=== PATIENT | male | born 1995 | race Hispanic/Latino ===

== ENCOUNTER 2023-02-08 12:21 | Emergency (ER) | payer OTHER ==
[~2023-02-08] VITALS: Ht 177.8 cm; Wt 218.2 kg
[2023-02-08] MEDS ORDERED: ZOSYN 3.375GM+NS 50ML 50 ML IVPB STA (14:23)
[2023-02-08] MEDS ORDERED: 0.9%NACL 1000ML 2,190 ML IV ONE (14:30)
[2023-02-08] MEDS ORDERED: ACETAMINOPHEN 500 MG TABLET PO ONE (14:30)
[2023-02-08 15:10] LABS: BASOPHILS % (AUTO) 0.3 % (0.0-5.0); EOSINOPHILS % (AUTO) 0.2 % (0.0-8.0); LYMPHOCYTES % (AUTO) 17.9 % (21.0-51.0); MEAN CORPUSCULAR HEMOGLOBIN 26.5 pg (27.0-33.0); MEAN CORPUSCULAR HGB CONC 32.5 g/dL (32.0-36.0); MEAN CORPUSCULAR VOLUME 81.6 fL (79-99); MONOCYTES % (AUTO) 10.9 % (3.0-13.0); NEUTROPHILS % (AUTO) 70.4 % (40.0-77.0); PLATELET COUNT (AUTO) 207 K/uL (130-400); RED CELL DISTRIBUTION WIDTH 14.8 % (11.0-15.5); WHITE BLOOD COUNT (AUTO) 6.5 K/uL (4.8-10.8)
[2023-02-08 15:28] LABS: CREATININE 1.1 mg/dL (0.5-1.5); POTASSIUM 3.3 mmol/L (3.5-5.1)
[2023-02-08 15:33] LABS: ALBUMIN 2.9 g/dL (3.5-5.0); TOTAL PROTEIN, SERUM 8.3 g/dL (6.0-8.3)
[2023-02-08 16:31] VITALS: BP 122/58
[2023-02-08] MEDS ORDERED: IBUP-2070 PO (17:10)
[2023-02-08] MEDS ORDERED: CEPH500C2 PO (17:10)
[2023-02-08] MEDS ORDERED: MUPI22OI2 TP (17:10)
[2023-02-08] MEDS ORDERED: SULF1TAB42 PO (17:10)
== END 2023-02-08 17:20 | disposition home or self-care (01) ==
LOC: EDH 12:21
DX: L03.115 Cellulitis of right lower limb (principal)
CPT/HCPCS: 99285; 96365; 93971; 80053; 85025; 87040 ×2; 83605; 36415; J2543

== ENCOUNTER 2023-04-15 19:45 | Emergency (ER) | payer OTHER ==
[~2023-04-15] VITALS: Ht 177.8 cm; Wt 218.2 kg
[~2023-04-15 19:45] MED LIST: CEPH500C2 PO; IBUP-2070 PO; MUPI22OI2 TP; SULF1TAB42 PO
[2023-04-15 20:42] LABS: BASOPHILS % (AUTO) 0.2 % (0.0-5.0); EOSINOPHILS % (AUTO) 1.1 % (0.0-8.0); HEMATOCRIT 42.2 % (42-54); MEAN CORPUSCULAR HEMOGLOBIN 26.6 pg (27.0-33.0); MEAN CORPUSCULAR HGB CONC 31.8 g/dL (32.0-36.0); MEAN CORPUSCULAR VOLUME 83.7 fL (79-99); NEUTROPHILS % (AUTO) 60.3 % (40.0-77.0); PLATELET COUNT (AUTO) 235 K/uL (130-400); RED BLOOD CELL COUNT(AUTO) 5.04 MIL/uL (4.50-6.20); RED CELL DISTRIBUTION WIDTH 14.2 % (11.0-15.5)
[2023-04-15 20:44] LABS: APPEARANCE,URINE CLEAR (CLEAR); BILIRUBIN,URINE NEGATIVE (NEGATIVE); COLOR,URINE YELLOW (YELLOW); GLUCOSE, URINE (UA) NEGATIVE (NEGATIVE); KETONES,URINE NEGATIVE (NEGATIVE); LEUKOCYTE ESTERASE ,URINE NEGATIVE Leu/uL (NEGATIVE); NITRATE,URINE NEGATIVE (NEGATIVE); OCCULT BLOOD,URINE NEGATIVE (NEGATIVE); PROTEIN,URINE 20 mg/dL (NEGATIVE); UROBILINOGEN,URINE 0.2 mg/dL (0.2-1.0)
[2023-04-15 20:48] LABS: MUCUS,URINE RARE LPF (None Seen); SQUAMOUS EPITHELIAL CELL,UR RARE /HPF (0-2)
[2023-04-15 21:03] LABS: CREATININE 1.3 mg/dL (0.5-1.5); POTASSIUM 3.8 mmol/L (3.5-5.1)
[2023-04-15 21:08] LABS: ALBUMIN 3.6 g/dL (3.5-5.0); TOTAL PROTEIN, SERUM 8.2 g/dL (6.0-8.3)
[2023-04-15] MEDS ORDERED: FAMOTIDINE 20MG VIAL IV ONE (23:00)
[2023-04-15] MEDS: MORPHINE 4 MG SYG IVP ONE ×2 (23:03→23:18)
[2023-04-15] MEDS: METOCLOPRAMIDE 10 MG/2 ML VIAL IVP ONE ×2 (23:03→23:18)
[2023-04-15] MEDS ORDERED: FAMOTIDINE 20MG TAB ONE (23:13)
[2023-04-15 23:36] VITALS: BP 128/70
== END 2023-04-16 02:02 | disposition home or self-care (01) ==
LOC: EDH 19:45
DX: R10.30 Lower abdominal pain, unspecified (principal); M54.50 Low back pain, unspecified; E66.09 Other obesity due to excess calories; Z68.44 Body mass index [BMI] 60.0-69.9, adult; Z79.899 Other long term (current) drug therapy
CPT/HCPCS: 99285; 74176; 96374; 80053; 83690; 85025; 81001; 36415; J3490; J2270; J2765

== ENCOUNTER 2023-11-09 21:19 | Emergency (ER) | payer OTHER ==
[~2023-11-09] VITALS: Ht 177.8 cm; Wt 222.3 kg
[2023-11-09 22:48] LABS: APPEARANCE,URINE CLEAR (CLEAR); BILIRUBIN,URINE NEGATIVE (NEGATIVE); COLOR,URINE LIGHT-YELLOW (YELLOW); GLUCOSE, URINE (UA) NEGATIVE (NEGATIVE); KETONES,URINE NEGATIVE (NEGATIVE); LEUKOCYTE ESTERASE ,URINE NEGATIVE Leu/uL (NEGATIVE); NITRATE,URINE NEGATIVE (NEGATIVE); OCCULT BLOOD,URINE NEGATIVE (NEGATIVE); PROTEIN,URINE NEGATIVE (NEGATIVE)
[2023-11-09 22:55] LABS: ADD UA MICROSCOPIC NO
[2023-11-10 00:24] VITALS: BP 172/98; PULSE 87; RESP 17; O2SAT 96
[2023-11-10] MEDS ORDERED: CLOT15C TP (00:29)
== END 2023-11-10 00:45 | disposition home or self-care (01) ==
LOC: EDH 21:19
DX: R30.0 Dysuria (principal); R21 Rash and other nonspecific skin eruption; J45.909 Unspecified asthma, uncomplicated; Z79.899 Other long term (current) drug therapy; Z98.890 Other specified postprocedural states
CPT/HCPCS: 81003

== ENCOUNTER 2024-07-07 11:02 | Observation (INO) | payer SELFPAY ==
[~2024-07-07] VITALS: Ht 177.8 cm; Wt 232.7 kg
[2024-07-07] VITALS (10 sets, daily range): BP systolic 134–141; BP diastolic 65; PULSE 103–140; RESP 22–28; TEMP 98.5–99.9; O2SAT 96–98
[~2024-07-07 11:02] MED LIST changes: +CLOT15C TP
[2024-07-07 11:38] LABS: BASOPHILS # (AUTO) 0.04 K/uL (0.00-0.20); BASOPHILS % (AUTO) 0.3 % (0.0-5.0); EOSINOPHILS # (AUTO) 0.02 K/uL (0.00-0.70); EOSINOPHILS % (AUTO) 0.1 % (0.0-8.0); HEMATOCRIT 41.3 % (42-54); IMMATURE GRANULOCYTE ABSOLUTE 0.06 K/uL (0-1); LYMPHOCYTES # (AUTO) 0.8 K/uL (1.0-4.8); LYMPHOCYTES % (AUTO) 5.4 % (21.0-51.0); MEAN CORPUSCULAR HEMOGLOBIN 27.3 pg (27.0-33.0); MEAN CORPUSCULAR HGB CONC 32.2 g/dL (32.0-36.0); MEAN CORPUSCULAR VOLUME 84.8 fL (79-99); MONOCYTES # (AUTO) 0.9 K/uL (0.1-1.0); NEUTROPHILS # (AUTO) 13.4 K/uL (1.8-7.7); NEUTROPHILS % (AUTO) 87.8 % (40.0-77.0); PLATELET COUNT (AUTO) 226 K/uL (130-400); RED BLOOD CELL COUNT(AUTO) 4.87 MIL/uL (4.50-6.20); RED CELL DISTRIBUTION WIDTH 14.3 % (11.0-15.5); WHITE BLOOD COUNT (AUTO) 15.3 K/uL (4.8-10.8)
[2024-07-07] MEDS: Solu-medROL 125MG VIAL IVP ONE (11:38)
[2024-07-07] MEDS: 0.9%NACL 1000ML 1,000 ML IV ONE (11:38)
[2024-07-07] MEDS: IpraTROPium/alBUTERol SULFATE 3 ML SOLUTION IH ONE (11:43)
[2024-07-07 11:45] LABS: CREATININE 1.2 mg/dL (0.5-1.3)
[2024-07-07 11:47] LABS: INR 1.02 (0.85-1.15)
[2024-07-07 11:49] LABS: PARTIAL THROMBOPLASTIN TIME 28.1 SEC (26.3-35.5)
[2024-07-07 11:52] LABS: SARS-CoV-2, RNA, NAAT NEGATIVE SARS CoV-2 (NEGATIVE)
[2024-07-07 11:54] LABS: ABG BASE EXCESS -2.3 mmol/L (-2.0-3.0); ABG OXYGEN SATURATION 95.1 % (94.0-98.0); ABG PCO2 33 mmHg (35-48); ABG PH 7.429 (7.350-7.450); PO2, ARTERIAL BG 72.2 mmHg (83.0-108.0); VENT MODE, BG RA (ROOM AIR)
[2024-07-07 11:59] LABS: APPEARANCE,URINE CLEAR (CLEAR); BILIRUBIN,URINE NEGATIVE (NEGATIVE); COLOR,URINE LIGHT-YELLOW (YELLOW); GLUCOSE, URINE (UA) NEGATIVE (NEGATIVE); KETONES,URINE NEGATIVE (NEGATIVE); LEUKOCYTE ESTERASE ,URINE NEGATIVE Leu/uL (NEGATIVE); NITRATE,URINE NEGATIVE (NEGATIVE); OCCULT BLOOD,URINE NEGATIVE (NEGATIVE); PROTEIN,URINE NEGATIVE (NEGATIVE); UROBILINOGEN,URINE 0.2 mg/dL (0.2-1.0)
[2024-07-07 12:06] LABS: AMPHET/METH SCREEN,URINE NEGATIVE (NEGATIVE); BARBITURATE SCREEN, URINE NEGATIVE (NEGATIVE); BENZODIAZEPINES SCREEN,URINE NEGATIVE (NEGATIVE); CANNABINOID SCREEN,URINE NEGATIVE (NEGATIVE); COCAINE SCREEN,URINE NEGATIVE (NEGATIVE); OPIATE SCREEN,URINE NEGATIVE (NEGATIVE); PHENCYCLIDINE SCREEN,URINE NEGATIVE (NEGATIVE)
[2024-07-07] MEDS: ceFEPime HCL 1 GM VIAL IVPB SCH (13:20)
[2024-07-07] MEDS ORDERED: DiphenhydrAMINE HCL 25 MG CAPSULE PO PRN (14:00)
[2024-07-07] MEDS ORDERED: PoTASSium chl 10% ELIXIR 20MEQ 20 MEQ/15 ML UDCUP PO PRN (14:00)
[2024-07-07] MEDS ORDERED: NITROGLYCERIN 0.4 MG SL TAB SL PRN (14:00)
[2024-07-07] MEDS ORDERED: 0.9%NACL 1000ML 1,000 ML IV SCH (14:00)
[2024-07-07] MEDS ORDERED: guaiFENesin-DM 200/20MG 10ML PO PRN (14:00)
[2024-07-07] MEDS ORDERED: PoTASSium chloRIDE 20MEQ/100ML 100 ML IV PRN (14:00)
[2024-07-07] MEDS ORDERED: acetaMINOPHEN 325 MG TAB PO PRN (14:00)
[2024-07-07] MEDS ORDERED: PoTASSium chloRIDE 20MEQ ER 20 MEQ ERTAB PO PRN (14:00)
[2024-07-07] MEDS ORDERED: LACTULOSE 20 GM/30 ML UDCUP PO PRN (14:00)
[2024-07-07] MEDS ORDERED: ondanSETRON 4MG INJ IV PRN (14:00)
[2024-07-07] MEDS ORDERED: MAGNESIUM 2GM PREMIX 50ML 50 ML IV PRN (14:00)
[2024-07-07] MEDS ORDERED: DiphenhydrAMINE HCL 50 MG/ML VIAL IV PRN (14:00)
[2024-07-07] MEDS: 0.9%NACL 1000ML 1,000 ML IV SCH (14:09)
[2024-07-07] MEDS: acetaMINOPHEN 325 MG TAB PO PRN (14:10)
[2024-07-07] MEDS: IpraTROPium/alBUTERol SULFATE 3 ML SOLUTION IH SCH (18:42)
[2024-07-07] MEDS: MAG/ALUM/SIMETH 30 ML UDCUP PO PRN (20:00)
[2024-07-08] VITALS (9 sets, daily range): BP systolic 118–133; BP diastolic 69–79; PULSE 94–106; RESP 18–24; TEMP 97.2–98.4; O2SAT 93–96
[2024-07-08 04:15] LABS: BASOPHILS # (AUTO) 0.01 K/uL (0.00-0.20); BASOPHILS % (AUTO) 0.1 % (0.0-5.0); HEMATOCRIT 39.4 % (42-54); IMMATURE GRANULOCYTE ABSOLUTE 0.09 K/uL (0-1); LYMPHOCYTES % (AUTO) 6.7 % (21.0-51.0); MEAN CORPUSCULAR HEMOGLOBIN 27.6 pg (27.0-33.0); MEAN CORPUSCULAR HGB CONC 31.5 g/dL (32.0-36.0); MEAN CORPUSCULAR VOLUME 87.6 fL (79-99); NEUTROPHILS # (AUTO) 12.7 K/uL (1.8-7.7); NEUTROPHILS % (AUTO) 85.6 % (40.0-77.0); PLATELET COUNT (AUTO) 216 K/uL (130-400); RED CELL DISTRIBUTION WIDTH 14.6 % (11.0-15.5); WHITE BLOOD COUNT (AUTO) 14.9 K/uL (4.8-10.8)
[2024-07-08 04:45] LABS: PHOSPHORUS 3.3 mg/dL (2.5-4.9); THYROID STIMULATING HORMONE 0.74 uIU/mL (0.36-3.74)
[2024-07-08] MEDS: ENOXAPARIN SODIUM 40 MG/0.4 ML SYRINGE SQ SCH (08:42)
== END 2024-07-08 15:30 | disposition home or self-care (01) ==
LOC: EDH 11:02 → EDHIP 11:03 → 4AH 15:25
PROVIDERS: ADMIT Internal Medicine; ATTEND Internal Medicine
DX: T67.5XXA Heat exhaustion, unspecified, initial encounter (principal); J45.901 Unspecified asthma with (acute) exacerbation; E86.0 Dehydration; E87.1 Hypo-osmolality and hyponatremia; M62.82 Rhabdomyolysis; D72.829 Elevated white blood cell count, unspecified; R42 Dizziness and giddiness; R51.9 Headache, unspecified; E66.01 Morbid (severe) obesity due to excess calories; Z20.822 Contact with and (suspected) exposure to COVID-19; Z68.45 Body mass index [BMI] 70 or greater, adult; Z79.899 Other long term (current) drug therapy; Z98.890 Other specified postprocedural states; X30.XXXA Exposure to excessive natural heat, initial encounter; Y93.89 Activity, other specified; Y92.89 Other specified places as the place of occurrence of the external cause; Y99.8 Other external cause status
CPT/HCPCS: 96361 ×2; 96365; 96375; 99285; 82550 ×2; 80048 ×2; 82803; 80305; 85025 ×2; 85610; 85730; 87040; 83605 ×3; 81001; 36415 ×2; 87635; 71045; 93005; 36600; 94660; 94664; 84145 ×2; 84443; 83735; 84100; G0378 ×26; J7030; J2919; J0692; 94640; J1650

== ENCOUNTER 2024-12-21 16:12 | Emergency (ER) | payer SELFPAY ==
[~2024-12-21] VITALS: Ht 177.8 cm; Wt 226.8 kg
[2024-12-21 16:58] LABS: BASOPHILS # (AUTO) 0.04 K/uL (0.00-0.20); BASOPHILS % (AUTO) 0.4 % (0.0-5.0); EOSINOPHILS # (AUTO) 0.19 K/uL (0.00-0.70); EOSINOPHILS % (AUTO) 1.9 % (0.0-8.0); HEMATOCRIT 43.4 % (42-54); IMMATURE GRANULOCYTE ABSOLUTE 0.03 K/uL (0-1); LYMPHOCYTES # (AUTO) 1.9 K/uL (1.0-4.8); LYMPHOCYTES % (AUTO) 19.1 % (21.0-51.0); MEAN CORPUSCULAR HEMOGLOBIN 27.1 pg (27.0-33.0); MEAN CORPUSCULAR HGB CONC 32.3 g/dL (32.0-36.0); MEAN CORPUSCULAR VOLUME 84.1 fL (79-99); MONOCYTES # (AUTO) 0.6 K/uL (0.1-1.0); NEUTROPHILS # (AUTO) 7.3 K/uL (1.8-7.7); NEUTROPHILS % (AUTO) 72.3 % (40.0-77.0); PLATELET COUNT (AUTO) 144 K/uL (130-400); RED BLOOD CELL COUNT(AUTO) 5.16 MIL/uL (4.50-6.20); RED CELL DISTRIBUTION WIDTH 14.3 % (11.0-15.5); WHITE BLOOD COUNT (AUTO) 10.1 K/uL (4.8-10.8)
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
--- NOTE | 2024-12-21 17:15 | NUR ---
PENDING GFR RESULTS, IV SITE, & CONSENT FOR CT EXAM.
[2024-12-21] MEDS ORDERED: IOHEXOL 350 MG/ML 100ML INFUS..BTL IV ONE (17:16)
[2024-12-21 17:53] LABS: POTASSIUM 3.8 mmol/L (3.5-5.1)
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
[2024-12-21] MEDS: BACITRACIN 1 EACH PACKET TP ONE (19:24)
[2024-12-21 19:49] VITALS: BP 124/63; PULSE 87; RESP 18; TEMP 98.1; O2SAT 97
== END 2024-12-21 21:11 | disposition home or self-care (01) ==
LOC: EDH 16:12
DX: S20.219A Contusion of unspecified front wall of thorax, initial encounter (principal); E66.01 Morbid (severe) obesity due to excess calories; V89.2XXA Person injured in unspecified motor-vehicle accident, traffic, initial encounter; Y93.89 Activity, other specified; Y92.488 Other paved roadways as the place of occurrence of the external cause; Y99.8 Other external cause status
CPT/HCPCS: 99285; 71260; 80048; 85025; 36415; 74177; Q9967

== ENCOUNTER 2025-08-01 14:51 | Inpatient (IN) | payer SELFPAY ==
[~2025-08-01] VITALS: Ht 154.9 cm; Wt 229.2 kg
[2025-08-01] MEDS: 0.9%NACL 1000ML 1,000 ML IV ONE (15:30)
[2025-08-01 16:09] LABS: IMMATURE GRANULOCYTE ABSOLUTE 0.06 K/uL (0-1); NUCLEATED RED BLOOD CELLS 0.0 % (0.0-0.19); PLATELET COUNT (AUTO) 274 K/uL (130-400); RED BLOOD CELL COUNT(AUTO) 5.07 MIL/uL (4.50-6.20); RED CELL DISTRIBUTION WIDTH 14.5 % (11.0-15.5); WHITE BLOOD COUNT (AUTO) 13.9 K/uL (4.8-10.8)
[2025-08-01 16:22] LABS: CREATININE 1.1 mg/dL (0.5-1.3); GLOMERULAR FILTR. RATE CALC 94.0 mL/min (>90); GLUCOSE,RANDOM 126.0 mg/dL (70-105); SODIUM SERUM 135.0 mmol/L (136-145); UREA NITROGEN, BLOOD 11.0 mg/dL (7-18)
--- NOTE | 2025-08-01 16:30 | HMCIMG ---
CHEST 1VW REASON: fever COMPARISON: Prior study from 07/07/2024 is available. FINDINGS: Single view of the chest was obtained. Lungs are clear. Heart size is normal. There is no pulmonary vascular congestion. Mediastinum and bony thorax appear unremarkable. The study is unchanged from prior study. IMPRESSION: 1. Normal single view chest x-ray.
[2025-08-01 16:31] LABS: ASPARTATE AMINOTRANSFERASE 21.0 U/L (10-37); CREATINE KINASE, TOTAL 165.0 U/L (21-232); TOTAL PROTEIN, SERUM 9.0 g/dL (6.0-8.3)
--- NOTE | 2025-08-01 16:40 | NUR ---
ASSUMED CARE AT THIS TIME
[2025-08-01] MEDS: 0.9%NACL 1000ML 1,000 ML IV SCH ×2 (17:00→19:58)
--- NOTE | 2025-08-01 17:05 | ERN ---
ED Note History of Present Illness Stated Complaint: FEVER Chief Complaint: Fever Time Seen by MD: 15:00 Dictation: 30 year-old male presenting to the emergency department fever generalized body aches over the past day worse in the past few hours patient also reports freque nt urination and a heavy cough. Allergies: Coded Allergies: No Known Allergies (Unverified Allergy, Unknown, 02/08/23) Home Meds No Active Prescriptions or Reported Meds Past Medical History Past Medical History: Asthma, Other Additional Past Medical Hx: MORBID OBESITY Surgical History: None Social History: Negative Review of System Dictation Constitutional: Per HPI Eyes: Negative for injury, pain,redness, and discharge ENT: Negative for injury,pain or swelling Cardiovascular: Negative for chest pain, palpitations, and edema Respiratory: Per HPI Abdomen/GI: Negative for abdominal pain, nausea, vomiting, diarrhea, and constipation Back: Negative for injury and pain : Per H MS/Extremity: Negative for injury and deformity Skin: Negative for rash, and discoloration Neuro: Negative for headache, weakness, numbness, tingling, and seizure Psych: Negative for suicide ideation, homicidal ideation, and hallucinations Initial Vital Sign VS Vital Signs Date Time Temp Pulse Resp B/P (MAP) Pulse Ox O2 Delivery O2 Flow Rate FiO2 08/01/25 14:53 103.8 144 20 157/56 98 Room Air Physical Exam Dictation General: awake, alert, febrile appears uncomfortable Head/Face: Normocephalic, atraumatic Eyes: PERRL, EOMI, vision at baseline ENT: oral cavity clear, TMs clear, no signs of infection Neck: Trachea midline, supple, no nuchal rigidity Cardiovascular: Tachycardic normal S1/S2, No MRGs, no JVD Respiratory: CTAB, no respiratory distress, No rales or wheezes Abdomen: Soft, non-tender, non-distended, normal bowel sounds, no guarding or rebound. Skin: Warm, dry, normal turgor, no rash MS/Extremity: Pulses equal, no cyanosis, neurovascular intact, FROM Neuro: COAx4, GCS 15, strength 5/5, CN 2-12 intact, normal cerebellar exam, normal gait, Psych: Normal behavior, mood, and affect normal Results (Laboratory/Radiology) Laboratory/Radiology Laboratory Tests Test 08/01/25 15:29 White Blood Count 13.9 K/uL (4.8-10.8) H Red Blood Count 5.07 MIL/uL (4.50-6.20) Hemoglobin 13.8 g/dL (14.0-18.0) L Hematocrit 43.5 % (42-54) Mean Corpuscular Volume 85.8 fL (79-99) Mean Corpuscular Hemoglobin 27.2 pg (27.0-33.0) Mean Corpuscular Hemoglobin Concent 31.7 g/dL (32.0-36.0) L Red Cell Distribution Width 14.5 % (11.0-15.5) Platelet Count 274 K/uL (130-400) Mean Platelet Volume 11.7 fL (7.5-10.5) H Immature Granulocyte % (Auto) 0.4 % (0-1) Neutrophils (%) (Auto) 91.0 % (40.0-77.0) H Lymphocytes (%) (Auto) 4.2 % (21.0-51.0) L Monocytes (%) (Auto) 4.2 % (3.0-13.0) Eosinophils (%) (Auto) 0.0 % (0.0-8.0) Basophils (%) (Auto) 0.2 % (0.0-5.0) Neutrophils # (Auto) 12.7 K/uL (1.8-7.7) H Lymphocytes # (Auto) 0.6 K/uL (1.0-4.8) L Monocytes # (Auto) 0.6 K/uL (0.1-1.0) Eosinophils # (Auto) 0.00 K/uL (0.00-0.70) Basophils # (Auto) 0.03 K/uL (0.00-0.20) Absolute Immature Granulocyte (auto 0.06 K/uL (0-1) Nucleated Red Blood Cells 0.0 % (0.0-0.19) White Cell Morphology Comment See comments Sodium Level 135 mmol/L (136-145) L Potassium Level 4.2 mmol/L (3.5-5.1) Chloride Level 96 mmol/L (101-111) L Carbon Dioxide Level 26 mmol/L (21-32) Blood Urea Nitrogen 11 mg/dL (7-18) Creatinine 1.1 mg/dL (0.5-1.3) Glomerular Filtration Rate Calc 94 mL/min (>90) Random Glucose 126 mg/dL (70-105) H Lactic Acid Level 2.8 mmol/L (0.8-2.5) H Total Calcium 9.4 mg/dL (8.5-10.1) Total Bilirubin 1.2 mg/dL (0.2-1.0) H Direct Bilirubin 0.2 mg/dL (0.0-0.3) Aspartate Amino Transf (AST/SGOT) 21 U/L (10-37) Alanine Aminotransferase (ALT/SGPT) 24 U/L (12-78) Alkaline Phosphatase 65 U/L (50-136) Total Creatine Kinase 165 U/L (21-232) # Troponin I High Sensitivity 7 ng/L (4-75) Total Protein 9.0 g/dL (6.0-8.3) H Albumin 3.6 g/dL (3.5-5.0) Labs Reviewed?: Yes EKG Comment: Heart rate 129, sinus tachycardia normal intervals no STEMI ED Course ED Course Orders Procedure Category Date Status Time Influenza Type A & B, LAB 08/01/25 Logged Rapid 15:04 Rapid (Group A Strep) LAB 08/01/25 Logged 15:04 12 Lead Ekg Tracing- EKG 08/01/25 Logged Technical 15:04 Basic Metabolic Panel LAB 08/01/25 Complete 15:04 Blood Cult ROBERT 08/01/25 In Process 15:04 Cbc With Differential LAB 08/01/25 Complete 15:04 Hepatic Function Panel LAB 08/01/25 Complete 15:04 Creatine Kinase, Total LAB 08/01/25 Complete 15:04 Lactic Acid LAB 08/01/25 Complete 15:04 Troponin I High LAB 08/01/25 Complete Sensitivity 15:04 Urinalysis Profile LAB 08/01/25 In Process 15:04 Chest 1vw RAD 08/01/25 Resulted 15:04 Covid19 (Sars Antigen LAB 08/01/25 Logged Rapid) 15:04 Ceftriaxone 2gm Vial PHA 08/01/25 Complete (Rocephin 2gm Inj) 15:04 0.9%Nacl 1000ml (Ns PHA 08/01/25 Complete 1000ml) 15:30 Acetaminophen 500mg PHA 08/01/25 Complete Tab (Tylenol 500mg T 15:04 0.9%Nacl 1000ml (Ns PHA 08/01/25 Logged 1000ml) 17:00 Current Medications Medications (Trade) Dose Ordered Sig/Ryan Route PRN Reason Start Time Stop Time Status Last Admin Dose Admin Acetaminophen (TYLenol 500MG TAB) 1,000 mg ONCE STAT PO 08/01/25 15:04 08/01/25 15:07 DC Ceftriaxone Sodium (Rocephin 2gm Inj) 2 gm ONCE STAT IVPB 08/01/25 15:04 08/01/25 15:07 DC Sodium Chloride 1,000 ml @ 0 mls/hr ONCE ONCE IV 08/01/25 15:30 08/01/25 15:31 DC Sodium Chloride 1,000 ml @ 0 mls/hr ONCE ONCE IV 08/01/25 17:00 08/01/25 17:01 UNV Vital Signs Date Time Temp Pulse Resp B/P (MAP) Pulse Ox O2 Delivery O2 Flow Rate FiO2 08/01/25 14:53 103.8 144 20 157/56 98 Room Air Medical Decision Making MDM MDM: Differential diagnosis: Rationale: Tests considered and ordered secondary to shared decision making include: labs, ECG and radiology Previous outside records reviewed: Old ER visits. Risk of complication and/or morbidity or mortality of patient management: None Medications-Per medication reconciliation Need for hospitalization: Patient does meet criteria for hospitalization. Need for emergency major/minor surgery: No There are no social concerns with this patient. Prescription drug management Prescriptions will include symptomatic care Patient's prior external medical records from other ER visits were reviewed by me as indicated. Prior testing and results from previous visits were reviewed. Prior tests were taken into account with medical decision making and resource utilization, independent historian/historians were used to obtain complete medical history. I independently interpreted the test that were performed, results were reviewed by me and considered findings on radiology if ordered. Medical management and examination interpretation discussions were had by me with other qualified healthcare professionals as indicated for the patient's care. 30-year-old male with SIRS, concern for sepsis, clear x-ray symptoms improved with IV fluids started on broad-spectrum antibiotics admitting for further care and evaluation. Intermediate lactic acidosis with no hypotension Critical Care Note Comment(s) Total critical care time was 33 minutes. Excluding time for procedures. Management of critically ill patient with concern for acute decompensation. Management included interpretation of laboratory values and imaging, hemodynamics, time for consultation with consultants and admitting physician. DX & DISP Disposition: Inpatient Departure Impression: Primary Impression: Leukocytosis Additional Impressions: Sepsis, Lactic acidosis Condition: Stable Scripts No Active Prescriptions or Reported Meds Referrals: SELF,REFERRAL (PCP) ZIA MARION MD Aug 01, 2025 17:05
[2025-08-01 17:06] LABS: APPEARANCE,URINE CLEAR (CLEAR); GLUCOSE, URINE (UA) NEGATIVE (NEGATIVE); LEUKOCYTE ESTERASE ,URINE NEGATIVE Leu/uL (NEGATIVE); NITRATE,URINE NEGATIVE (NEGATIVE); OCCULT BLOOD,URINE NEGATIVE (NEGATIVE)
[2025-08-01 17:10] LABS: ADD UA MICROSCOPIC NO
[2025-08-01] MEDS: BUDESONIDE 0.5 MG/2 ML INH IH ONE (17:36)
[2025-08-01 17:37] VITALS: PULSE 124; RESP 20; O2SAT 96
[2025-08-01 17:44] LABS: ABG BASE EXCESS -1.2 mmol/L (-2.0-3.0); ABG HCO3 21.7 mmol/L (21.0-28.0); ABG OXYGEN SATURATION 95.7 % (94.0-98.0); ABG PCO2 31 mmHg (35-48); ABG PH 7.462 (7.350-7.450); CARBON MONOXIDE 1.5 % (0.5-1.5); PO2, ARTERIAL BG 76.0 mmHg (83.0-108.0); TEMPERATURE, CELSIUS BG 37.0 CELSIUS (35.5-37.0); VENT MODE, BG RA (ROOM AIR)
--- NOTE | 2025-08-01 17:44 | HP ---
[facility] Date of Service: Aug 01, 2025 Time of Service: 17:44 HISTORY OF PRESENT ILLNESS: Date of service: 08/01/2025, patient was seen in ER room 16 This is a 30-year-old male With history of severe morbid obesity with BMI greater than 70, asthma, who presented to the ER for further evaluation of two day history of fever, cough, shortness of breath with congestion. Symptoms have been ongoing for the past two days and patient reports having fever of 103 today. Patient states that about a week ago, he had flu-like symptoms and he took [id number] Robitussin for management. He has been coughing as well and has been having increased urinary frequency. Denies any nausea, vomiting or abdominal pain. Denies having significant wheezing today. He has a history of asthma which is uncontrolled, he uses PRN albuterol inhaler if he starts having flare-up of asthma. Reports that his weight has been stable, he reports having history of morbid obesity, he has a history of snoring and uncontrolled sleep apnea. On presentation to the hospital, patient was noted to be afebrile with T-max of 103.8, heart rate of 144 with sinus tachycardia, blood pressure of 157/56. Labs [place] [address], hemoglobin of 13.8, platelet count of 592511. BMP on presentation showed sodium of 135, potassium 4.9, chloride of 96, BUN of 11, creatinine 1.1, lactic acid of 2.8. Chest x-ray showed hypoventilation with no acute infiltrates. Patient will be admitted for further management of sepsis with lower respiratory tract infection. Patient with severe morbid obesity and will be monitored closely. Patient will receive sepsis bolus of fluid, we will start patient on broad-spectrum antibiotics. We will see how patient progresses in the next 48- 72 hours. REVIEW OF SYSTEMS CONSTITUTIONAL: Fevers, chills, malaise NEUROLOGICAL: Denies headache, amaurosis fugax, motor weakness, sensory deficit, vertigo/spinning sensation, gait abnormalities, or tremors. ENT: No hearing loss, otalgia, otorrhea, rhinitis, rhinorrhea, hoarseness, or sore throat. CARDIOVASCULAR: Denies any exertional angina, dyspnea on exertion, orthopnea, paroxysmal nocturnal dyspnea, palpitations, life-threatening arrhythmias, claudication. PULMONARY: Congestion, cough, shortness of breath SLEEP: Denies morning headaches, daytime somnolence or napping. Denies difficulty falling asleep, staying asleep, waking from sleep. Denies knowledge of snoring. GASTROINTESTINAL: Denies any type of dysphagia to either liquids or solids. Denies nausea, vomiting, pyrosis, early satiety, abdominal pain, diarrhea, constipation, or changes in stool consistency or caliber. Denies coffee-ground emesis, hematemesis, hematochezia, or melanotic stools. GENITOURINARY: Denies frequency, urgency, nocturia, hematuria or incontinence (Storage/Irritative symptoms.) Low urinary stream, straining to void, urinary intermittency or hesitancy, splitting of the voiding stream, terminal dribbling. ENDOCRINOLOGIC: Denies polyuria, polydipsia, polyphagia or heat/cold intolerances. HEMATOLOGIC: Denies thrombophilia/previous clots, or coagulopathy/bleeding disorders. ONCOLOGIC: Denies personal history of malignancy. DERMATOLOGIC: Denies rashes or pruritus. PSYCHIATRIC: Denies any suicidal or homicidal ideation. Denies hallucinations. PAST MEDICAL HISTORY: Morbid obesity, untreated sleep apnea, asthma PAST SURGICAL HISTORY: Patient denies history of major surgeries PAST SOCIAL HISTORY: Denies active smoking or alcohol consumption FAMILY HISTORY: Reports family history of hypertension and type 2 diabetes mellitus Allergies: No known drug allergies Home medications: Denies being on outpatient home medications Coded Allergies: No Known Allergies (Unverified Allergy, Unknown, 02/08/23) PHYSICAL EXAM GENERAL APPEARANCE: The patient is awake, alert, and oriented, patient is sitting up in the bed, patient has severe morbid obesity, appears tachypneic NEUROLOGICAL: Cranial nerves II-XII grossly intact. Motor is 5/5 in bilateral upper and lower extremities proximal to distal. No sensory deficits. HEENT: Face is symmetric. Pupils are equal and reactive. Extraocular movements are intact. NECK: Supple. No JVD. No thyromegaly. No submental, submandibular, pre- /postauricular, occipital or supraclavicular lymphadenopathy. CHEST: Normal chest expansion. No Telemetry. LUNGS: Absence of any rales, rhonchi or any wheezing. CARDIOVASCULAR: Regular. S1 and S2 normal. No appreciable rubs, murmurs or gallops. ABDOMEN: Soft, nontender, and nondistended. There is no rebound, voluntary guarding, or rigidity. : Deferred. No [place]. EXTREMITIES: Non-edematous and not cyanotic. No clubbing. Good capillary refill. SKIN: No skin breakdown. Vital Sign (Last 24 Hours) 08/01/25 14:53 Temp 103.8 B/P (MAP) 157/56 Pulse Ox 98 LABS: Laboratory: Test 08/01/25 16:21 08/01/25 15:29 Range/Units Urine Color LIGHT-YELLOW YELLOW Urine Appearance CLEAR CLEAR Urine pH 8.0 5.0-8.0 Urine Specific [place] 1.018 1.001-1.031 Urine Protein NEGATIVE NEGATIVE mg/dL Urine Glucose (UA) NEGATIVE NEGATIVE mg/dL Urine Ketones NEGATIVE NEGATIVE mg/dL Urine Occult Blood NEGATIVE NEGATIVE Urine Nitrate NEGATIVE NEGATIVE Urine Bilirubin NEGATIVE NEGATIVE mg/dL Urine Urobilinogen 2.0 H 0.2-1.0 mg/dL Urine Leukocyte Esterase NEGATIVE NEGATIVE Garry/uL White Blood Count 13.9 H 4.8-10.8 K/uL Red Blood Count 5.07 4.50-6.20 MIL/uL Hemoglobin 13.8 L 14.0-18.0 g/dL Hematocrit 43.5 42-54 % Mean Corpuscular Volume 85.8 79-99 fL Mean Corpuscular Hemoglobin 27.2 27.0-33.0 pg Mean Corpuscular Hemoglobin Concent 31.7 L 32.0-36.0 g/dL Red Cell Distribution Width 14.5 11.0-15.5 % Platelet Count 274 130-400 K/uL Mean Platelet Volume 11.7 H 7.5-10.5 fL Immature Granulocyte % (Auto) 0.4 0-1 % Neutrophils (%) (Auto) 91.0 H 40.0-77.0 % Lymphocytes (%) (Auto) 4.2 L 21.0-51.0 % Monocytes (%) (Auto) 4.2 3.0-13.0 % Eosinophils (%) (Auto) 0.0 0.0-8.0 % Basophils (%) (Auto) 0.2 0.0-5.0 % Neutrophils # (Auto) 12.7 H 1.8-7.7 K/uL Lymphocytes # (Auto) 0.6 L 1.0-4.8 K/uL Monocytes # (Auto) 0.6 0.1-1.0 K/uL Eosinophils # (Auto) 0.00 0.00-0.70 K/uL Basophils # (Auto) 0.03 0.00-0.20 K/uL Absolute Immature Granulocyte (auto 0.06 0-1 K/uL Nucleated Red Blood Cells 0.0 0.0-0.19 % White Cell Morphology Comment See comments Sodium Level 135 L 136-145 mmol/L Potassium Level 4.2 3.5-5.1 mmol/L Chloride Level 96 L 101-111 mmol/L Carbon Dioxide Level 26 21-32 mmol/L Blood Urea Nitrogen 11 7-18 mg/dL Creatinine 1.1 0.5-1.3 mg/dL Glomerular Filtration Rate Calc 94 >90 mL/min Random Glucose 126 H 70-105 mg/dL Lactic Acid Level 2.8 H 0.8-2.5 mmol/L Total Calcium 9.4 8.5-10.1 mg/dL Total Bilirubin 1.2 H 0.2-1.0 mg/dL Direct Bilirubin 0.2 0.0-0.3 mg/dL Aspartate Amino Transf (AST/SGOT) 21 10-37 U/L Alanine Aminotransferase (ALT/SGPT) 24 12-78 U/L Alkaline Phosphatase 65 50-136 U/L Total Creatine Kinase 165 # 21-232 U/L Troponin I High Sensitivity 7 4-75 ng/L Total Protein 9.0 H 6.0-8.3 g/dL Albumin 3.6 3.5-5.0 g/dL Current Medications Medications (Trade) Dose Ordered Sig/Ryan Route PRN Reason Start Time Stop Time Status Last Admin Dose Admin Acetaminophen (TYLenol 325MG TAB) 650 mg Q6H PRN PO MILD PAIN (1-3) 08/01/25 17:30 08/31/25 17:29 UNV Acetaminophen (TYLenol 500MG TAB) 1,000 mg ONCE STAT PO 08/01/25 15:04 08/01/25 15:07 DC Azithromycin 250 ml @ 250 mls/hr Q24H IVPB 08/01/25 17:30 08/11/25 17:29 UNV Budesonide (Pulmicort 0.5 Mg/2ml) 0.5 mg BIDRESP IH 08/01/25 18:00 08/31/25 17:59 UNV Cefepime HCl (MAXipime 2 gm vial) 2 gm BID IVPB 08/01/25 21:00 08/11/25 20:59 UNV Ceftriaxone Sodium (Rocephin 2gm Inj) 2 gm ONCE STAT IVPB 08/01/25 15:04 08/01/25 15:07 DC Enoxaparin Sodium (Lovenox) 40 mg BID SQ 08/01/25 21:00 08/31/25 20:59 UNV Famotidine (Pepcid 20mg Vial) 20 mg BID IV 08/01/25 21:00 08/31/25 20:59 UNV Hydralazine HCl (APRESOLine 20MG INJ) 10 mg Q6H PRN IV ADMINISTER FOR SBP > 160 08/01/25 18:00 08/31/25 17:59 UNV Ipratropium [place] (AtrovENT UD) 0.5 mg [id number] IH 08/01/25 18:00 08/31/25 17:59 UNV Ondansetron HCl (zoFRAN 4MG INJ) 4 mg Q6H PRN IVP NAUSEA/VOMITING 08/01/25 17:30 08/31/25 17:29 UNV Sodium Chloride 1,000 ml @ 0 mls/hr ONCE IV 08/01/25 17:00 08/02/25 16:59 Sodium Chloride 1,000 ml @ 75 mls/hr [id number] IV 08/01/25 19:00 08/31/25 18:59 UNV DIAGNOSTICS / RADIOLOGY: SERVICE 1504 REASON: fever ORDERING PHYSICIAN: ZIA MARION MD PROCEDURE: CXR1VW - CHEST 1VW CHEST 1VW REASON: fever COMPARISON: Prior study from 07/07/2024 is available. FINDINGS: Single view of the chest was obtained. Lungs are clear. Heart size is normal. There is no pulmonary vascular congestion. Mediastinum and bony thorax appear unremarkable. The study is unchanged from prior study. IMPRESSION: 1. Normal single view chest x-ray. DICTATED BY: MARION OCAMPO MD DATE: 08/01/251626 ELECTRONICALLY SIGNED BY: MARION OCAMPO MD DATE: 08/01/251629 ASSESSMENT: Sepsis with lower respiratory tract infection, POA Lower respiratory tract infection with acute bronchitis, POA Rule out developing community-acquired pneumonia, POA Lactic acidosis, POA Hyponatremia, POA Severe morbid obesity, POA Untreated obstructive sleep apnea, POA Rule out obesity hypoventilation syndrome, POA History of uncontrolled asthma, POA PLAN: Patient will be admitted to cardiac telemetry floor, patient is presenting with sepsis with sinus tachycardia with heart rate greater than 140 We will start patient on sepsis bolus of fluid and stand maintenance IV fluid of NS at 75 mL/hour We will start patient on broad-spectrum antibiotics with IV cefepime/azithromycin We will follow up blood cultures, we will obtain sputum cultures, we will follow up flu, COVID and rapid streptococcal antigen testing We will obtain CT chest without contrast to rule out developing community- acquired pneumonia We will request consultation with pulmonology, patient with underlying poorly treated sleep apnea as well as asthma We will start patient on Pulmicort twice daily, we will start patient on scheduled Atrovent Request consultation with Infectious Disease for antibiotic stewardship and management of sepsis All labs will be repeated in the morning We will keep patient on DVT prophylaxis with Lovenox 40 mg b.i.d. due to severe obesity We will keep patient on GI prophylaxis with Pepcid All labs will be repeated in the morning Date of service: 08/01/2025 Discussed with patient extensively to establish care with PCP, once he improves from sepsis, discussed with patient about dietary and lifestyle modification to lose weight Plan of care was discussed with patient at bedside, Kang Saenz MD Advanced Care Planning: Which of the following were discussed: Hospice care: Yes __ No _X_ Therapeutic options: Yes _X_ No __ Advance directives: Yes _X_ No __ Other discussions: Discussed with who?: Patient Voluntary nature of this service was explained to the patient? Yes _x_ No __ Amount of time spent: 20 minutes KANG SAENZ MD Aug 01, 2025 17:44
[2025-08-01 17:55] LABS: INR 1.09 (0.85-1.15)
[2025-08-01 18:00] VITALS: TEMP 100
[2025-08-01] MEDS: 0.9%NACL 1000ML 2,190 ML IV SCH (18:00)
[2025-08-01] MEDS: BUDESONIDE 0.5 MG/2 ML INH IH SCH (18:00)
[2025-08-01 18:03] LABS: AMPHET/METH SCREEN,URINE NEGATIVE (NEGATIVE); BARBITURATE SCREEN, URINE NEGATIVE (NEGATIVE); CANNABINOID SCREEN,URINE NEGATIVE (NEGATIVE); COCAINE SCREEN,URINE NEGATIVE (NEGATIVE)
[2025-08-01 18:09] LABS: LACTATE DEHYDROGENASE 328.0 U/L (81-234)
[2025-08-01] MEDS: AZITHROMYCIN 500MG+NS 250ML 250 ML IVPB SCH (18:19)
[2025-08-01 18:51] LABS: RAPID GROUP A STREP negative (NEGATIVE)
--- NOTE | 2025-08-01 18:53 | EKG ---
[facility] Test Date: 2025-08-01 Test Time: 15:14:21 Pat Name: RADHA VELASQUEZ Department: [facility]HIP Room: 428 Gender: M [employer] Aide: [id number] : 1995 Requested By: ZIA MARION Order Number: [id number] Reading MD: Jaiden Montgomery Measurements Intervals [place] Rate: 129 P: 61 CA: 152 QRS: -19 QRSD: 98 T: 50 QT: 298 QTc: 437 Interpretive Statements Sinus tachycardia Compared to ECG 07/07/2024 11:23:21 Atrial premature complex(es) no longer present Left-axis deviation no longer present Electronically Signed On 08-02-2025 17:45:45 CDT by Jaiden Montgomery Please click the below link to view image of tracing.
[2025-08-01 18:59] LABS: COVID19 (SARS ANTIGEN RAPID) PRESUMPTIVE NEGATIVE (NEGATIVE)
[2025-08-01 19:01] LABS: INFLUENZA TYPE A Negative For Type A (NEGATIVE); INFLUENZA TYPE B Negative For Type B (NEGATIVE)
[2025-08-01] MEDS ORDERED: guaiFENesin-DM 200/20MG 10ML PO PRN (19:30)
[2025-08-01] MEDS: FAMOTIDINE 20MG VIAL IV SCH (20:03)
[2025-08-01] MEDS: ENOXAPARIN SODIUM 40 MG/0.4 ML SYRINGE SQ SCH (20:03)
--- NOTE | 2025-08-01 20:35 | CONS ---
[facility] CONSULTATION NOTE Date Patient Seen: Aug 01, 2025 Time of Visit: 20:35 Supervising Physician: Dr. Agustin Peace Reason for Consultation: Sepsis, possible pneumonia, untreated RADHA/OHS Primary Care Physician: Admitting team: [facility] Hospitalist team Outpatient Specialists: Inpatient Consults: BIS, critical care team PROBLEM LIST: Acute hypoxemic respiratory failure, POA Respiratory alkalosis, chronic, POA Asthma with acute exacerbation, POA Untreated obstructive sleep apnea, POA Sepsis without septic shock, POA Lactic acidosis, POA Hyponatremia/hypochloremia, POA Hyperglycemia, POA Elevated total bilirubin/ urobilinogenemia, POA Hyperproteinemia, POA Severe morbid obesity, POA HPI: Mr. Parag Ramirez is a 30-year-old male with history of severe morbid obesity, seasonal allergies, uncontrolled asthma, and sleep apnea who presented to the ER for evaluation flu-like symptoms onset a week ago. The patient reported he developed a fever of 103 F, two days ago started with shortness of breath and congestion. He reported he took [id number] Robitussin when the symptoms started one week ago. The patient also reported increased urinary frequency. The patient denied nausea, vomiting, or abdominal pain. He uses PRN albuterol inhaler if he started having flare-up of asthma. Reports that his weight has at baseline a history of snoring and uncontrolled sleep apnea. Initial vital signs: T-max of 103.8, heart rate of 144bpm with sinus tachycardia, blood pressure of 157/56. Swabs: Negative flu/strep/COVID. Initial Labs: [place] [address], hemoglobin of 13.8, platelet count of 507714. BMP sodium of 135, potassium 4.9, chloride of 96, BUN of 11, creatinine 1.1, lactic acid of 2.8. ABGs: PH 7.462, pCO2 31, PO2 76, bicarbonate 21.7, O2 sats 95.7, base excess -1.2. Chest x-ray showed hypoventilation with no acute infiltrates. Pending CT results. The patient received bolus of fluid and was started on broad-spectrum antibiotics in ED. Patient will be admitted by the [facility] hospitalist team for further management of sepsis with lower respiratory tract infection. [facility] pulmonary team was consulted for sepsis, possible pneumonia, untreated RADHA/OHS. I assessed the patient in ED 16. The patient's breathing was tachypneic, RR 24bpm, on room air. The patient reports he has had recent allergy problems. He admits to snoring and apneic episodes. The patient has not seen a green prize packer for this in the past. The patient was placed on 2 L nasal cannula, CPAP was ordered. BIS team we will continue monitoring patient closely. Plan and as sessment is listed below. PAST MEDICAL HX: see above PAST SURGICAL HX: Denied SOCIAL HISTORY: No tobacco, ETOH, or illicit drug use Coded Allergies: No Known Allergies (Unverified Allergy, Unknown, 02/08/23) REVIEW OF SYSTEMS: 12 point ROS reviewed with patient. Pertinent positives mentioned above. Otherwise negative. PHYSICAL EXAM: GENERAL: Alert, awake oriented x 3 HEENT: EOMI, Sclera non icteric, moist mucosa NECK: Supple, no JVD, trachea midline LUNGS: Tachypneic. Diminished breath sounds bilaterally. No wheezes HEART: Regular rate and rhythm. Normal S1 and S2, without murmurs ABD: Morbid obese. Abdomen soft, nontender. Bowel sounds present EXT: No clubbing cyanosis or edema NEURO: Alert and oriented to person,, place, situation. No neuro deficits. Vital Signs (last 8hr) Date Time Temp Pulse Resp B/P (MAP) Pulse Ox O2 Delivery O2 Flow Rate FiO2 08/01/25 18:16 102.0 118 24 130/56 95 Room Air* 0 21 08/01/25 18:00 100.0 08/01/25 17:37 124 20 N/A Room Air 21 08/01/25 17:37 124 20 08/01/25 14:53 103.8 144 20 157/56 98 Room Air LABS: Hematology Labs: Test 08/01/25 15:29 Range/Units White Blood Count 13.9 H 4.8-10.8 K/uL Red Blood Count 5.07 4.50-6.20 MIL/uL Hemoglobin 13.8 L 14.0-18.0 g/dL Hematocrit 43.5 42-54 % Mean Corpuscular Volume 85.8 79-99 fL Mean Corpuscular Hemoglobin 27.2 27.0-33.0 pg Mean Corpuscular Hemoglobin Concent 31.7 L 32.0-36.0 g/dL Red Cell Distribution Width 14.5 11.0-15.5 % Platelet Count 274 130-400 K/uL Mean Platelet Volume 11.7 H 7.5-10.5 fL Immature Granulocyte % (Auto) 0.4 0-1 % Neutrophils (%) (Auto) 91.0 H 40.0-77.0 % Lymphocytes (%) (Auto) 4.2 L 21.0-51.0 % Monocytes (%) (Auto) 4.2 3.0-13.0 % Eosinophils (%) (Auto) 0.0 0.0-8.0 % Basophils (%) (Auto) 0.2 0.0-5.0 % Neutrophils # (Auto) 12.7 H 1.8-7.7 K/uL Lymphocytes # (Auto) 0.6 L 1.0-4.8 K/uL Monocytes # (Auto) 0.6 0.1-1.0 K/uL Eosinophils # (Auto) 0.00 0.00-0.70 K/uL Basophils # (Auto) 0.03 0.00-0.20 K/uL Absolute Immature Granulocyte (auto 0.06 0-1 K/uL Nucleated Red Blood Cells 0.0 0.0-0.19 % White Cell Morphology Comment See comments Erythrocyte Sedimentation Rate 65 H 0-15 MM/HR Chemistry Labs: Test 08/01/25 15:29 Range/Units Sodium Level 135 L 136-145 mmol/L Potassium Level 4.2 3.5-5.1 mmol/L Chloride Level 96 L 101-111 mmol/L Carbon Dioxide Level 26 21-32 mmol/L Blood Urea Nitrogen 11 7-18 mg/dL Creatinine 1.1 0.5-1.3 mg/dL Glomerular Filtration Rate Calc 94 >90 mL/min Random Glucose 126 H 70-105 mg/dL Hemoglobin A1c 5.8 4.0-6.0 % Estimated Average Glucose (eAG) 120 70-126 mg/dL Lactic Acid Level 2.8 H 0.8-2.5 mmol/L Total Calcium 9.4 8.5-10.1 mg/dL Total Bilirubin 1.2 H 0.2-1.0 mg/dL Direct Bilirubin 0.2 0.0-0.3 mg/dL Aspartate Amino Transf (AST/SGOT) 21 10-37 U/L Alanine Aminotransferase (ALT/SGPT) 24 12-78 U/L Alkaline Phosphatase 65 50-136 U/L Lactate Dehydrogenase 328 H 81-234 U/L Total Creatine Kinase 165 # 21-232 U/L Troponin I High Sensitivity 7 4-75 ng/L C-Reactive Protein, Quantitative 54.00 H 0.5-3.0 mg/L Total Protein 9.0 H 6.0-8.3 g/dL Albumin 3.6 3.5-5.0 g/dL Procalcitonin 0.32 0.05-0.5 ng/mL Thyroid Stimulating Hormone (TSH) 0.72 0.36-3.74 uIU/mL Coagulation Labs: Test 08/01/25 15:29 Range/Units Prothrombin Time 11.5 9.6-11.6 SEC Prothromb Time International Ratio 1.09 0.85-1.15 Activated Partial Thromboplast Time 31.3 26.3-35.5 SEC DIAGNOSTICS / RADIOLOGY RESULTS: [ ] PULMONARY PLAN: Monitor respiratory status closely. Start O2 at 2 L nasal cannula now. Titrate oxygen to keep SpO2 equal to greater than 92% and according to ABGs. Atrovent nebulizer treatment treatments scheduled q.6 hours. Albuterol nebulizer treatment q.4 hours PRN SOB. Pulmicort nebulizer treatment b.i.d. RT to provide IS and education on use. Robitussin DM as needed for cough. Continue antibiotic therapy: Zithromax IV and cefepime IV. Pending CT. Pending sputum cultures. Upon discharge follow up with green prize packer for further workup of sleep apnea. DVT and GI prophylaxis. Further orders/plan per hospitalization course and per admitting providers. ATTESTATION BY PHYSICIAN I reviewed the documentation, medical decision making, and treatment plan as noted by the SAMUEL above. I agree with the findings and plan of care. Agustin Peace MD, LUCIA M [facility] HOST Aug 01, 2025 20:35
--- NOTE | 2025-08-01 22:38 | NUR ---
PATIENT NOT TAKING ANY HOME MEDS
[2025-08-02] VITALS (13 sets, daily range): BP systolic 138–158; BP diastolic 86–95; PULSE 88–109; RESP 14–30; TEMP 98.1–99; O2SAT 97–100
[2025-08-02] MEDS: SODIUM CHLORIDE 3% FOR INHALATION 4 ML/AMP VIAL.NEB IH ONE ×3 (00:15→19:34)
--- NOTE | 2025-08-02 00:30 | NUR ---
CPAP IS SITU, PT IN AND OUT OF CPAP HE'S BEEN ASKING TO GO TO THE TOILET
[2025-08-02] MEDS ORDERED: ALBUTEROL 0.083% 2.5 MG/3 ML INH IH PRN (01:30)
[2025-08-02 05:51] LABS: IMMATURE GRANULOCYTE ABSOLUTE 0.04 K/uL (0-1); NUCLEATED RED BLOOD CELLS 0.0 % (0.0-0.19); PLATELET COUNT (AUTO) 229 K/uL (130-400); RED BLOOD CELL COUNT(AUTO) 4.58 MIL/uL (4.50-6.20); RED CELL DISTRIBUTION WIDTH 14.6 % (11.0-15.5); WHITE BLOOD COUNT (AUTO) 6.5 K/uL (4.8-10.8)
[2025-08-02 06:01] LABS: CREATININE 1.0 mg/dL (0.5-1.3); GLOMERULAR FILTR. RATE CALC 105.0 mL/min (>90); GLUCOSE,RANDOM 119.0 mg/dL (70-105); SODIUM SERUM 140.0 mmol/L (136-145); UREA NITROGEN, BLOOD 11.0 mg/dL (7-18)
[2025-08-02] MEDS ORDERED: MAGNESIUM 2GM PREMIX 50ML 50 ML IV PRN (08:30)
[2025-08-02] MEDS ORDERED: DEXTROSE 50%-WATER 50 ML DISP.SYRIN IV PRN (08:30)
[2025-08-02] MEDS ORDERED: PoTASSium chl 10% ELIXIR 20MEQ 20 MEQ/15 ML UDCUP PO PRN (08:30)
[2025-08-02] MEDS ORDERED: GLUCAGON 1MG KIT 1 MG ML IM PRN (08:30)
--- NOTE | 2025-08-02 10:14 | HMCIMG ---
CT CHEST W/O CONTRAST REASON: SEPSIS, FEVER, COUGH SINCE YESTERDAY, R/O DEVELOPING PNEUMONIA COMPARISON: None. TECHNIQUE: Multiple sequential axial images of the chest were obtained from the thoracic inlet through the upper pole of the kidneys without intravenous contrast administration. FINDINGS: Heart size is within upper limits of normal. No mediastinal or axillary lymphadenopathy identified. There is no pleural or pericardial effusion. Lungs are clear. No evidence of airspace consolidation or pulmonary venous congestion. There is no evidence of any pleural effusion. There is no consolidation or pneumothorax. Trachea and main bronchi are unremarkable. No chest wall abnormality identified. IMPRESSION: No acute process seen in CT of the chest without contrast. CT was performed with one or more following dose reduction techniques: automated exposure control, adjustment of the mA and kv according to patient's size, or use of a iterative reconstruction technique.
--- NOTE | 2025-08-02 10:41 | PN ---
[facility] PROGRESS NOTE Date of Service: Aug 02, 2025 Time of Service: 10:41 SUBJECTIVE: [ Nicholas Tuttle the 30-year-old male seen in ER bed 16 on August 02 at approximately 11:00 a.m. in the morning. Patient states he feels much better than when he came in yesterday. 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 Knee denies much cough no chest pain or shortness for breath. ] REVIEW OF SYSTEMS CONSTITUTIONAL: Fevers, chills, malaise NEUROLOGICAL: Denies headache, amaurosis fugax, motor weakness, sensory deficit, vertigo/spinning sensation, gait abnormalities, or tremors. ENT: No hearing loss, otalgia, otorrhea, rhinitis, rhinorrhea, hoarseness, or sore throat. CARDIOVASCULAR: Denies any exertional angina, dyspnea on exertion, orthopnea, paroxysmal nocturnal dyspnea, palpitations, life-threatening arrhythmias, claudication. PULMONARY: Congestion, cough, shortness of breath all improved SLEEP: Denies morning headaches, daytime somnolence or napping. Denies difficulty falling asleep, staying asleep, waking from sleep. Denies knowledge of snoring. GASTROINTESTINAL: Denies any type of dysphagia to either liquids or solids. Denies nausea, vomiting, pyrosis, early satiety, abdominal pain, diarrhea, constipation, or changes in stool consistency or caliber. Denies coffee-ground emesis, hematemesis, hematochezia, or melanotic stools. GENITOURINARY: Denies frequency, urgency, nocturia, hematuria or incontinence (Storage/Irritative symptoms.) Low urinary stream, straining to void, urinary intermittency or hesitancy, splitting of the voiding stream, terminal dribbling. ENDOCRINOLOGIC: Denies polyuria, polydipsia, polyphagia or heat/cold intolerances. HEMATOLOGIC: Denies thrombophilia/previous clots, or coagulopathy/bleeding disorders. ONCOLOGIC: Denies personal history of malignancy. DERMATOLOGIC: Denies rashes or pruritus. PSYCHIATRIC: Denies any suicidal or homicidal ideation. Denies hallucinations. PHYSICAL EXAM GENERAL APPEARANCE: The patient is awake, alert, and oriented, patient is sitting up in the bed, patient has severe morbid obesity, appears tachypneic NEUROLOGICAL: Cranial nerves II-XII grossly intact. Motor is 5/5 in bilateral upper and lower extremities proximal to distal. No sensory deficits. HEENT: Face is symmetric. Pupils are equal and reactive. Extraocular movements are intact. NECK: Supple. No JVD. No thyromegaly. No submental, submandibular, pre- /postauricular, occipital or supraclavicular lymphadenopathy. CHEST: Normal chest expansion. No Telemetry. LUNGS: Bilateral rhonchi with fair air expansion no wheezes or rales. CARDIOVASCULAR: Regular. S1 and S2 normal. No appreciable rubs, murmurs or gallops. ABDOMEN: Soft, nontender, and nondistended. There is no rebound, voluntary guarding, or rigidity. : Deferred. No Bonilla. EXTREMITIES: Non-edematous and not cyanotic. No clubbing. Good capillary refill. SKIN: No skin breakdown. Vital Signs (last 8hr) Date Time Temp Pulse Resp B/P (MAP) Pulse Ox O2 Delivery O2 Flow Rate FiO2 08/02/25 08:00 94 20 130/84 99 Room Air* 0 21 08/02/25 06:31 92 20 08/02/25 06:30 88 30 40 08/02/25 06:23 99.1 85 18 142/60 98 Room Air* 0 21 LABS: Laboratory: Test 08/02/25 05:28 08/01/25 20:54 08/01/25 17:43 08/01/25 17:40 Range/Units White Blood Count 6.5 # 4.8-10.8 K/uL Red Blood Count 4.58 4.50-6.20 MIL/uL Hemoglobin 12.4 L 14.0-18.0 g/dL Hematocrit 39.6 L 42-54 % Mean Corpuscular Volume 86.5 79-99 fL Mean Corpuscular Hemoglobin 27.1 27.0-33.0 pg Mean Corpuscular Hemoglobin Concent 31.3 L 32.0-36.0 g/dL Red Cell Distribution Width 14.6 11.0-15.5 % Platelet Count 229 130-400 K/uL Mean Platelet Volume 11.5 H 7.5-10.5 fL Immature Granulocyte % (Auto) 0.6 0-1 % Neutrophils (%) (Auto) 73.5 40.0-77.0 % Lymphocytes (%) (Auto) 15.4 L 21.0-51.0 % Monocytes (%) (Auto) 10.0 3.0-13.0 % Eosinophils (%) (Auto) 0.0 0.0-8.0 % Basophils (%) (Auto) 0.5 0.0-5.0 % Neutrophils # (Auto) 4.8 1.8-7.7 K/uL Lymphocytes # (Auto) 1.0 1.0-4.8 K/uL Monocytes # (Auto) 0.7 0.1-1.0 K/uL Eosinophils # (Auto) 0.00 0.00-0.70 K/uL Basophils # (Auto) 0.03 0.00-0.20 K/uL Absolute Immature Granulocyte (auto 0.04 0-1 K/uL Nucleated Red Blood Cells 0.0 0.0-0.19 % Sodium Level 140 136-145 mmol/L Potassium Level 4.0 3.5-5.1 mmol/L Chloride Level 101 101-111 mmol/L Carbon Dioxide Level 29 21-32 mmol/L Blood Urea Nitrogen 11 7-18 mg/dL Creatinine 1.0 0.5-1.3 mg/dL Glomerular Filtration Rate Calc 105 >90 mL/min Random Glucose 119 H 70-105 mg/dL Total Calcium 8.6 8.5-10.1 mg/dL Magnesium Level 2.20 1.80-2.40 mg/dL C-Reactive Protein, Quantitative 135.10 H 0.5-3.0 mg/L Lactic Acid Level 1.9 0.8-2.5 mmol/L Blood Gas Specimen Type Arterial Arterial Blood pH 7.462 H 7.350-7.450 Arterial Blood Partial Pressure CO2 31 L 35-48 mmHg Arterial Blood Partial Pressure O2 76.0 L 83.0-108.0 mmHg Arterial Blood HCO3 21.7 21.0-28.0 mmol/L Arterial Blood Oxygen Saturation 95.7 94.0-98.0 % Arterial Blood Base Excess -1.2 -2.0-3.0 mmol/L Hemoglobin (Blood Gas) 12.9 L 13.5-17.5 g/dL Sodium (Blood Gas) 132 L 136-145 MMOL/L Bedside Potassium (Blood Gas) 4.1 3.4-4.5 MMOL/L Bedside Chloride (Blood Gas) 99 98-107 MMOL/L Bedside Glucose (Blood Gas) 130 H 65-95 MG/DL Bedside Ionized Calcium (Blood Gas) 1.13 L 1.15-1.33 MMOL/L Bedside Lactic Acid (Blood Gas) 1.18 H 0.36-0.75 MMOL/L Blood Gas Temperature 37.0 35.5-37.0 CELSIUS Blood Gas Vent Mode RA ROOM AIR FiO2 21.0 % Blood Gas Specimen Comment GUNJAN HOBSON Influenza Type A Antigen Negative For Type A NEGATIVE Influenza Type B Antigen Negative For Type B NEGATIVE SARS-CoV-2 Antigen (Rapid) PRESUMPTIVE NEGATIVE NEGATIVE Group A Streptococcus Rapid negative NEGATIVE Test 08/01/25 16:29 08/01/25 16:21 08/01/25 15:29 Range/Units Urine Opiates Screen NEGATIVE NEGATIVE Urine Barbiturates Screen NEGATIVE NEGATIVE Urine Phencyclidine Screen NEGATIVE NEGATIVE Urine Amphetamines Screen NEGATIVE NEGATIVE Urine Benzodiazepines Screen NEGATIVE NEGATIVE Urine Cocaine Screen NEGATIVE NEGATIVE Urine Marijuana (THC) Screen NEGATIVE NEGATIVE Urine Color LIGHT-YELLOW YELLOW Urine Appearance CLEAR CLEAR Urine pH 8.0 5.0-8.0 Urine Specific [place] 1.018 1.001-1.031 Urine Protein NEGATIVE NEGATIVE mg/dL Urine Glucose (UA) NEGATIVE NEGATIVE mg/dL Urine Ketones NEGATIVE NEGATIVE mg/dL Urine Occult Blood NEGATIVE NEGATIVE Urine Nitrate NEGATIVE NEGATIVE Urine Bilirubin NEGATIVE NEGATIVE mg/dL Urine Urobilinogen 2.0 H 0.2-1.0 mg/dL Urine Leukocyte Esterase NEGATIVE NEGATIVE Garry/uL White Cell Morphology Comment See comments Erythrocyte Sedimentation Rate 65 H 0-15 MM/HR Prothrombin Time 11.5 9.6-11.6 SEC Prothromb Time International Ratio 1.09 0.85-1.15 Activated Partial Thromboplast Time 31.3 26.3-35.5 SEC Hemoglobin A1c 5.8 4.0-6.0 % Estimated Average Glucose (eAG) 120 70-126 mg/dL Total Bilirubin 1.2 H 0.2-1.0 mg/dL Direct Bilirubin 0.2 0.0-0.3 mg/dL Aspartate Amino Transf (AST/SGOT) 21 10-37 U/L Alanine Aminotransferase (ALT/SGPT) 24 12-78 U/L Alkaline Phosphatase 65 50-136 U/L Lactate Dehydrogenase 328 H 81-234 U/L Total Creatine Kinase 165 # 21-232 U/L Troponin I High Sensitivity 7 4-75 ng/L Total Protein 9.0 H 6.0-8.3 g/dL Albumin 3.6 3.5-5.0 g/dL Procalcitonin 0.32 0.05-0.5 ng/mL Thyroid Stimulating Hormone (TSH) 0.72 0.36-3.74 uIU/mL Current Medications Medications (Trade) Dose Ordered Sig/Ryan Route PRN Reason Start Time Stop Time Status Last Admin Dose Admin Acetaminophen (TYLenol 325MG TAB) 650 mg Q6H PRN PO MILD PAIN (1-3) 08/01/25 17:30 08/31/25 17:29 08/02/25 06:17 650 MG Acetaminophen (TYLenol 500MG TAB) 1,000 mg ONCE STAT PO 08/01/25 15:04 08/01/25 15:07 DC 08/01/25 18:00 1,000 MG Albuterol Sulfate (Proventil 0.083% 2.5mg/3ml) 2.5 mg Q4H PRN IH SHORTNESS OF BREATH 08/02/25 01:30 09/01/25 01:29 Azithromycin 250 ml @ 250 mls/hr Q24H IVPB 08/01/25 17:30 08/11/25 17:29 08/01/25 18:19 250 MLS/HR Budesonide (Pulmicort 0.5 Mg/2ml) 0.5 mg BIDRESP IH 08/01/25 18:00 08/31/25 17:59 08/02/25 06:35 0.5 MG Cefepime HCl (MAXipime 2 gm vial) 2 gm BID IVPB 08/01/25 21:00 08/11/25 20:59 08/02/25 09:52 2 GM Ceftriaxone Sodium (Rocephin 2gm Inj) 2 gm ONCE STAT IVPB 08/01/25 15:04 08/01/25 15:07 DC 08/01/25 17:58 2 GM Dextrose (D50w) 50 ml AD PRN IV HYPOGLYCEMIA PROTOCOL 08/02/25 08:30 09/01/25 08:29 Enoxaparin Sodium (Lovenox) 40 mg BID SQ 08/01/25 21:00 08/31/25 20:59 08/02/25 09:52 40 MG Famotidine (Pepcid 20mg Vial) 20 mg BID IV 08/01/25 21:00 08/31/25 20:59 08/02/25 09:50 20 MG Glucagon (Glucagon 1mg Kit) 1 mg AD PRN IM HYPOGLYCEMIA PROTOCOL 08/02/25 08:30 09/01/25 08:29 Guaifenesin/ Dextromethorphan (RobiTUSSin DM 200/20MG 10ML) 10 ml Q6H PRN PO COUGH 08/01/25 19:30 08/31/25 19:29 Hydralazine HCl (APRESOLine 20MG INJ) 10 mg Q6H PRN IV ADMINISTER FOR SBP > 160 08/01/25 18:00 08/31/25 17:59 Ipratropium [place] (AtrovENT UD) 0.5 mg [id number] IH 08/01/25 18:00 08/31/25 17:59 08/02/25 06:35 0.5 MG Magnesium Sulfate 50 ml @ 0 mls/hr PROTOCOL PRN IV MAGNESIUM PROTOCOL 08/02/25 08:30 09/01/25 08:29 Ondansetron HCl (zoFRAN 4MG INJ) 4 mg Q6H PRN IVP NAUSEA/VOMITING 08/01/25 17:30 08/31/25 17:29 Potassium Chloride 100 ml @ 100 mls/hr AD PRN IV POTASSIUM PROTOCOL 08/02/25 08:30 09/01/25 08:29 Potassium Chloride (K-Dur/Klor-Con 20meq) 20 meq AD PRN PO POTASSIUM PROTOCOL 08/02/25 08:30 09/01/25 08:29 Potassium Chloride (KCl 10% Elixir 20meq/15ml) 20 meq AD PRN PO POTASSIUM PROTOCOL 08/02/25 08:30 09/01/25 08:29 Sodium Chloride 1,000 ml @ 0 mls/hr ONCE IV 08/01/25 17:00 08/02/25 16:59 Sodium Chloride 1,000 ml @ 75 mls/hr [id number] IV 08/01/25 19:00 08/31/25 18:59 08/02/25 09:52 75 MLS/HR Sodium Chloride 2,190 ml @ 730 mls/hr ONCE IV 08/01/25 17:30 08/02/25 17:29 08/01/25 18:00 730 MLS/HR DIAGNOSTICS / RADIOLOGY: [ ] ASSESSMENT: Sepsis with lower respiratory tract infection, POA Lower respiratory tract infection with acute bronchitis, POA Rule out developing community-acquired pneumonia, POA Lactic acidosis, POA Hyponatremia, POA Severe morbid obesity, POA Untreated obstructive sleep apnea, POA Rule out obesity hypoventilation syndrome, POA History of uncontrolled asthma, POA PLAN: Patient will be admitted to cardiac telemetry floor, patient is presenting with sepsis with sinus tachycardia with heart rate greater than 140 Patient's heart rate has normalized with fluid resuscitation and IV antibiotics as well as breathing treatments. Patient may be downgraded to med surge floor. Advised the patient that I would prefer that he stay another day in order to receive more breathing treatments and IV antibiotics. Patient is initial screening for COVID as well as strep and flu were negative. CT chest pending We will request consultation with pulmonology, patient with underlying poorly treated sleep apnea as well as asthma We will start patient on Pulmicort twice daily, we will start patient on scheduled Atrovent continue Request consultation with Infectious Disease for antibiotic stewardship and management of sepsis We will keep patient on DVT prophylaxis with Lovenox 40 mg b.i.d. due to severe obesity We will keep patient on GI prophylaxis with Pepcid All labs will be repeated in the morning Date of service: 08/01/2025 Discussed with patient my recommendation to stay in the hospital another day and continue with treatment outlined above. Plan of care was discussed with patient at bedside, ZHENG IPKE MD Aug 02, 2025 10:41
--- NOTE | 2025-08-02 11:07 | PN ---
[facility] PROGRESS NOTE Date Patient Seen: Aug 02, 2025 Time of Visit: 11:07 Supervising Physician: Dr. Peace Primary Care Physician: Admitting team: [facility] Hospitalist team Outpatient Specialists: Inpatient Consults: [facility], critical care team PROBLEM LIST: Acute hypoxemic respiratory failure, POA Respiratory alkalosis, chronic, POA Asthma with acute exacerbation, POA Untreated obstructive sleep apnea, POA Sepsis without septic shock, POA Lactic acidosis, POA Hyponatremia/hypochloremia, POA Hyperglycemia, POA Elevated total bilirubin/ urobilinogenemia, POA Hyperproteinemia, POA Severe morbid obesity, POA Recommendations: Monitor respiratory status closely. RT 6 minute ambulation Weight loss, GLP1 RADHA suspected upon discharge, follow up with [facility], Dr. Pravin Plaza this you want to go there DVT and GI prophylaxis. Further orders/plan per hospitalization course and per admitting providers. INTERVAL HISTORY: Patient was assessed and seen while resting in bed head of bed elevated, emergency room bay#16. Awake alert and oriented. Reviewed and discussed with patient laboratory results, vital signs, diagnostic tests results medications patient denies shortness or breath, chest pain, fever, chills, nauseousness and diarrhea currently. Discussed with patient importance of weight loss and a heart healthy diet with failure to do so results in serious health issues. BiPAP at q.h.s. A.m. labs ordered REVIEW OF SYSTEMS: 12 point ROS reviewed with patient. Pertinent positives mentioned above. Otherwise negative. PHYSICAL EXAM: GENERAL: Alert, awake oriented x 3 HEENT: EOMI, Sclera non icteric, moist mucosa NECK: Supple, no JVD, trachea midline LUNGS: Tachypneic. Diminished breath sounds bilaterally. No wheezes HEART: Regular rate and rhythm. Normal S1 and S2, without murmurs ABD: Morbid obese. Abdomen soft, nontender. Bowel sounds present EXT: No clubbing cyanosis or edema NEURO: Alert and oriented to person,, place, situation. No neuro deficits. Vital Signs (last 8hr) Date Time Temp Pulse Resp B/P (MAP) Pulse Ox O2 Delivery O2 Flow Rate FiO2 08/02/25 08:00 94 20 130/84 99 Room Air* 0 21 08/02/25 06:31 92 20 08/02/25 06:30 88 30 40 08/02/25 06:23 99.1 85 18 142/60 98 Room Air* 0 21 LABS: Hematology Labs: Test 08/02/25 05:28 08/01/25 15:29 Range/Units White Blood Count 6.5 # 4.8-10.8 K/uL Red Blood Count 4.58 4.50-6.20 MIL/uL Hemoglobin 12.4 L 14.0-18.0 g/dL Hematocrit 39.6 L 42-54 % Mean Corpuscular Volume 86.5 79-99 fL Mean Corpuscular Hemoglobin 27.1 27.0-33.0 pg Mean Corpuscular Hemoglobin Concent 31.3 L 32.0-36.0 g/dL Red Cell Distribution Width 14.6 11.0-15.5 % Platelet Count 229 130-400 K/uL Mean Platelet Volume 11.5 H 7.5-10.5 fL Immature Granulocyte % (Auto) 0.6 0-1 % Neutrophils (%) (Auto) 73.5 40.0-77.0 % Lymphocytes (%) (Auto) 15.4 L 21.0-51.0 % Monocytes (%) (Auto) 10.0 3.0-13.0 % Eosinophils (%) (Auto) 0.0 0.0-8.0 % Basophils (%) (Auto) 0.5 0.0-5.0 % Neutrophils # (Auto) 4.8 1.8-7.7 K/uL Lymphocytes # (Auto) 1.0 1.0-4.8 K/uL Monocytes # (Auto) 0.7 0.1-1.0 K/uL Eosinophils # (Auto) 0.00 0.00-0.70 K/uL Basophils # (Auto) 0.03 0.00-0.20 K/uL Absolute Immature Granulocyte (auto 0.04 0-1 K/uL Nucleated Red Blood Cells 0.0 0.0-0.19 % White Cell Morphology Comment See comments Erythrocyte Sedimentation Rate 65 H 0-15 MM/HR Chemistry Labs: Test 08/02/25 05:28 08/01/25 20:54 08/01/25 15:29 Range/Units Sodium Level 140 136-145 mmol/L Potassium Level 4.0 3.5-5.1 mmol/L Chloride Level 101 101-111 mmol/L Carbon Dioxide Level 29 21-32 mmol/L Blood Urea Nitrogen 11 7-18 mg/dL Creatinine 1.0 0.5-1.3 mg/dL Glomerular Filtration Rate Calc 105 >90 mL/min Random Glucose 119 H 70-105 mg/dL Total Calcium 8.6 8.5-10.1 mg/dL Magnesium Level 2.20 1.80-2.40 mg/dL C-Reactive Protein, Quantitative 135.10 H 0.5-3.0 mg/L Lactic Acid Level 1.9 0.8-2.5 mmol/L Hemoglobin A1c 5.8 4.0-6.0 % Estimated Average Glucose (eAG) 120 70-126 mg/dL Total Bilirubin 1.2 H 0.2-1.0 mg/dL Direct Bilirubin 0.2 0.0-0.3 mg/dL Aspartate Amino Transf (AST/SGOT) 21 10-37 U/L Alanine Aminotransferase (ALT/SGPT) 24 12-78 U/L Alkaline Phosphatase 65 50-136 U/L Lactate Dehydrogenase 328 H 81-234 U/L Total Creatine Kinase 165 # 21-232 U/L Troponin I High Sensitivity 7 4-75 ng/L Total Protein 9.0 H 6.0-8.3 g/dL Albumin 3.6 3.5-5.0 g/dL Procalcitonin 0.32 0.05-0.5 ng/mL Thyroid Stimulating Hormone (TSH) 0.72 0.36-3.74 uIU/mL Coagulation Labs: Test 08/01/25 15:29 Range/Units Prothrombin Time 11.5 9.6-11.6 SEC Prothromb Time International Ratio 1.09 0.85-1.15 Activated Partial Thromboplast Time 31.3 26.3-35.5 SEC DIAGNOSTICS / RADIOLOGY RESULTS: [ ] Recommendations: Monitor respiratory status closely. RT 6 minute ambulation Weight loss, GLP1 RADHA suspected upon discharge, follow up with [facility], Dr. Pravin Plaza this you want to go there DVT and GI prophylaxis. Further orders/plan per hospitalization course and per admitting providers. DEWAYNE ANGUIANO AGACN Aug 02, 2025 11:07
--- NOTE | 2025-08-02 13:33 | NUR ---
Patient arrived on med surg via hospital bed. No pain or distress noted on arrival. Will continue to monitor.
[2025-08-02] MEDS ORDERED: AUD NEB (14:12)
[2025-08-02] MEDS ORDERED: ALBUHFA IH (14:12)
[2025-08-02] MEDS ORDERED: LORA10CA PO (14:12)
--- NOTE | 2025-08-02 16:44 | NUR ---
INITIAL/DCP HOME Met w pt this afternoon to discuss dcp. Prior to admission pt was living w his dad. 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 Pt states he is independent w ambulation and ADLs. He owns a nebulizer. [facility] preferred [facility]. Pt does not have health insurance. Community resource guide provided. Discharge goal is to return home. Addendum: 08/02/25 at 1646 by CELIA GARNETT Amended: Links added.
[2025-08-03] VITALS (10 sets, daily range): BP systolic 126–155; BP diastolic 81–88; PULSE 80–100; RESP 16–24; TEMP 98–98.5; O2SAT 96–99
[2025-08-03 04:47] LABS: IMMATURE GRANULOCYTE ABSOLUTE 0.02 K/uL (0-1); NUCLEATED RED BLOOD CELLS 0.0 % (0.0-0.19); PLATELET COUNT (AUTO) 204 K/uL (130-400); RED BLOOD CELL COUNT(AUTO) 4.14 MIL/uL (4.50-6.20); RED CELL DISTRIBUTION WIDTH 14.6 % (11.0-15.5); WHITE BLOOD COUNT (AUTO) 5.2 K/uL (4.8-10.8)
[2025-08-03 05:19] LABS: CREATININE 1.1 mg/dL (0.5-1.3); GLOMERULAR FILTR. RATE CALC 94.0 mL/min (>90); GLUCOSE,RANDOM 102.0 mg/dL (70-105); SODIUM SERUM 138.0 mmol/L (136-145); UREA NITROGEN, BLOOD 13.0 mg/dL (7-18)
[2025-08-03] MEDS: PoTASSium chloRIDE 20MEQ ER 20 MEQ ERTAB PO PRN (06:06)
[2025-08-03] MEDS ORDERED: ALBUTEROL SULFATE NEB SCH (14:30)
[2025-08-03] MEDS ORDERED: NON-FORMULARY MEDICATION 1 EACH (Albuterol Sulfate (Ventolin Hfa/Proventil Hfa/Proair Hfa) IH PRN (14:30)
--- NOTE | 2025-08-03 14:44 | DS ---
Discharge Summary Hospital Course Summary: 29-year-old male morbidly obese who comes in with two day history of cough and shortness for breath diagnosed with bronchitis. CT scan does not show any pneumonia. Patient received IV antibiotics and nebulizer treatments and did well. By hospital day 3. He was ready for discharge without any chest pain or shortness for breath and felt normal. Physical exam showed a morbidly obese young male in no respiratory distress HEENT: PERRLA, EOMI Lungs were clear to auscultation bilaterally CVS S1-S2 regular no murmur heart sounds distant Abdomen: Soft morbidly obese with a huge pannus bowel sounds present exam limited due to body habitus Extremities: Without clubbing cyanosis or edema Neuro: Moving all four extremities Wafer Machine Operator(s): Pulmonary benchmark Procedure(s): None Assessment/Plan: ASSESSMENT: Sepsis with lower respiratory tract infection, POA Lower respiratory tract infection with acute bronchitis, POA Rule out developing community-acquired pneumonia, POA Lactic acidosis, POA Hyponatremia, POA Severe morbid obesity, POA Untreated obstructive sleep apnea, POA Rule out obesity hypoventilation syndrome, POA History of uncontrolled asthma, POA PLAN: Patient will be admitted to cardiac telemetry floor, patient is presenting with sepsis with sinus tachycardia with heart rate greater than 140 Patient's heart rate has normalized with fluid resuscitation and IV antibiotics as well as breathing treatments. Patient may be downgraded to med surge floor. Advised the patient that I would prefer that he stay another day in order to receive more breathing treatments and IV antibiotics. Patient is initial screening for COVID as well as strep and flu were negative. CT chest pending We will request consultation with pulmonology, patient with underlying poorly treated sleep apnea as well as asthma We will start patient on Pulmicort twice daily, we will start patient on scheduled Atrovent continue Request consultation with Infectious Disease for antibiotic stewardship and management of sepsis We will keep patient on DVT prophylaxis with Lovenox 40 mg b.i.d. due to severe obesity We will keep patient on GI prophylaxis with Pepcid All labs will be repeated in the morning Date of service: 08/01/2025 Discussed with patient my recommendation to stay in the hospital another day and continue with treatment outlined above. Plan of care was discussed with patient at bedside, Discharge Instructions: See meds Ask patient to follow up with a primary care physician to [facility] or he could go to direct care with Dr. Farley. He does need to have a sleep study done to confirm the presence of obstructive sleep apnea and get a CPAP machine he also needs to lose weight. Home Medications: Active Scripts Amoxicillin/Potassium Clav (Amox Tr-K Clv 875-125 mg Tab) 875 Mg-125 Mg Tablet, 1 TAB PO BID for 8 Days, #16 TAB 0 Refills Prov:ZHENG PIKE MD 08/03/25 Reported Medications Loratadine (Claritin) 10 Mg Capsule, 1 CAP PO DAILY for allergy symptoms for 30 Days, #30 CAP 0 Refills 08/02/25 Albuterol Sulfate (Ventolin Hfa/Proventil Hfa/Proair Hfa) 90 Mcg Puff, 2 PUFF IH Q4HPRN PRN for wheezing for 30 Days, #18 GM 0 Refills 08/02/25 Albuterol Sulfate (Albuterol Sulfate) 2.5 Mg/0.5 Ml Vial.neb, 1 VIAL NEB Q6H for shortness of breath for 30 Days, #60 ML 0 Refills 08/02/25 Time spent arranging discharge: 1-30 minutes ZHENG PIKE MD Aug 03, 2025 14:44
[2025-08-03] MEDS ORDERED: AMOX1TAB16 PO (14:48)
--- NOTE | 2025-08-03 15:33 | NUR ---
DISCHARGED EDUCATION GIVEN TO PATIENT REGARDING FOLLOW UP APPOINTMENTS AND INSTRUCTIONS. IV CATHETER REMOVED AND INTACT. PT VERBALIZED UNDERSTANDING. PT PENDING TRANSPORTATION TO ARRIVE. Addendum: 08/03/25 at 1553 by SAM SWIFT LVN LVN PT TAKEN DOWN VIA WHEEL CHAIR TO PRIVATE CAR NO FURTHER COMMENTS.
--- NOTE | 2025-08-03 23:58 | PN ---
INFECTIOUS DISEASE FOLLOWUP NOTE DATE OF SERVICE: 08/03/2025 SUBJECTIVE: The patient is seen and examined at bedside. No fevers or chills. ____. No nausea or vomiting. No bleeding tendencies. No palpitations or orthopnea. Denies any dysuria or urinary frequency. PHYSICAL EXAMINATION: GENERAL: Elderly male, awake, in no acute distress. VITAL SIGNS: Temperature 35, pulse , respiratory rate ____, blood pressure . EYES: No icterus. Pupils equal and reactive. HENT: No oral thrush seen. Moist oral mucosa. NECK: Supple. No JVD or thyromegaly. LUNGS: Good air entry. No rales, no rhonchi. CARDIOVASCULAR: S1 and S2 regular. Tachycardic. No murmur heard. ABDOMEN: Soft, nontender. Bowel sounds are present. CENTRAL NERVOUS SYSTEM: Awake, alert, oriented x 3. No focal deficits. SKIN: No rashes, no itchiness. LYMPHATIC: No peripheral lymphadenopathy. BACK: No deformity, no pressure ulcer. MUSCULOSKELETAL: No joint swelling, erythema, or tenderness. ASSESSMENT: A 30-year-old male with: * Shortness of breath and fever. * ____ abscess. * Pneumonia. * ____. PLAN: * Continue ceftriaxone. * Continue cetirizine. * Continue DVT prophylaxis. * Use oxygen as needed. TID: [id number] RECEIPT: [id number]
--- NOTE | 2025-08-04 02:54 | HMCIMG ---
EXAM: CR Chest, 1 View. CLINICAL HISTORY: bronchitis. COMPARISON: None provided. FINDINGS: LUNGS: The lungs show no infiltrate or other acute finding. PLEURAL SPACES: No evidence of pleural effusion or pneumothorax. MEDIASTINUM: The cardiomediastinal silhouette is within normal limits. BONES: No acute osseous abnormality. IMPRESSION: 1. No acute cardiopulmonary findings. /[place]
[2025-08-04] MEDS ORDERED: LORATAdine 10 mg 10 MG TABLET PO SCH (09:00)
== END 2025-08-03 15:50 | disposition home or self-care (01) | DRG 871 ==
LOC: EDH 14:51 → EDHIP 14:52 → 4DH 08-02 14:00
PROVIDERS: ADMIT Internal Medicine; ATTEND Internal Medicine
DX: A41.9 Sepsis, unspecified organism (principal); J18.9 Pneumonia, unspecified organism; J96.01 Acute respiratory failure with hypoxia; E87.1 Hypo-osmolality and hyponatremia; J45.901 Unspecified asthma with (acute) exacerbation; E87.4 Mixed disorder of acid-base balance; Z68.45 Body mass index [BMI] 70 or greater, adult; E66.01 Morbid (severe) obesity due to excess calories; G47.33 Obstructive sleep apnea (adult) (pediatric); J20.9 Acute bronchitis, unspecified; E88.09 Other disorders of plasma-protein metabolism, not elsewhere classified; E87.8 Other disorders of electrolyte and fluid balance, not elsewhere classified; Z82.49 Family history of ischemic heart disease and other diseases of the circulatory system; Z83.3 Family history of diabetes mellitus
CPT/HCPCS: 36415; 36600; 71045; 71250; 80048; 80076; 80305; 81003; 82435; 82550; 82803; 82947; 83036; 83605; 83615; 83735; 84132; 84145; 84295; 84443; 84484; 85018; 85025; 85610; 85651; 85730; 86140; 87040; 87071; 87205; 87426; 87804; 87880; 93005; 94640; 94660; 94664; 96374; 99291; G0378; J0456; J0692; J0696; J1650; J7030; J1308